=== PATIENT | female | born 1945 | race African-American/Black ===

== ENCOUNTER 2017-10-03 15:08 | Outpatient (CLI) | payer MEDICARE, MEDICAID | END 2017-10-03 15:09 | disposition home or self-care (01) | LOC: BICMAMMO 15:08 | PROVIDERS: ATTEND Family Medicine | DX: Z12.31 Encounter for screening mammogram for malignant neoplasm of breast (principal); R92.1 Mammographic calcification found on diagnostic imaging of breast | CPT/HCPCS: 77063; 77067 ==

== ENCOUNTER 2018-12-27 12:19 | Outpatient (CLI) | payer MEDICARE, MEDICAID ==
--- NOTE | 2018-12-27 13:30 | MMO ---
Bilateral MAMMO Bilat Screen [facility]. CLINICAL HISTORY: Patient is 73 years old and is seen for screening. The patient has no family history of breast cancer. The patient has no personal history of cancer. VIEWS: The views performed were: bilateral craniocaudal with tomosynthesis; bilateral mediolateral oblique with tomosynthesis; right mediolateral oblique; and right exaggerated craniocaudal. FILMS COMPARED: The present examination has been compared to prior imaging studies performed at [facility] on 07/07/2003 and 10/03/2017. MAMMOGRAM FINDINGS: There are scattered fibroglandular densities. There are no suspicious masses, calcifications or areas of architectural distortion. There are benign appearing calcifications in both breasts. There are no suspicious masses, suspicious calcifications, or new areas of architectural distortion. IMPRESSION: THERE IS NO MAMMOGRAPHIC EVIDENCE OF MALIGNANCY. A ROUTINE FOLLOW-UP MAMMOGRAM IN 1 YEAR IS RECOMMENDED. THE RESULTS OF THIS EXAM WERE SENT TO THE PATIENT. ACR BI-RADS Category 2 - Benign finding MAMMOGRAPHY NOTE: 1. A negative mammogram report should not delay a biopsy if a dominant of clinically suspicious mass is present. 2. Approximately 10% to 15% of breast cancers are not detected by mammography. 3. Adenosis and dense breasts may obscure an underlying neoplasm. Reported by: OGLA TRAN MD Electonically Signed: [id number]
== END 2018-12-27 12:20 | disposition home or self-care (01) ==
LOC: BICMAMMO 12:19
PROVIDERS: ATTEND Family Medicine
DX: Z12.31 Encounter for screening mammogram for malignant neoplasm of breast (principal)
CPT/HCPCS: 77063; 77067

== ENCOUNTER 2019-12-01 10:07 | Outpatient (CLI) | payer MEDICARE, OTHER ==
--- NOTE | 2019-12-01 12:20 | MRI ---
MRI RIGHT SHOULDER WITHOUT CONTRAST: HISTORY: Traumatic tear rotator cuff. COMPARISON: None. FINDINGS: Biceps Tendon: Ruptured intraarticular biceps tendon retracted to the mid intra trabecular groove with extensive int erstitial tearing. Labrum: Extensive intrasubstance tearing throughout the superior and anterior superior labrum and anterior-po sterior biceps expansion. Rotator Cuff: Full-thickness tear of the superior subscapularis tendon from the footprint for which it is stripped. There is a full-thickness full-width supraspinatus and infraspinatus tendon tear from the footprint retracted to the glenoid. A few fibers of the rotator cable are seen implanting anteriorly. Muscles: High-grade supraspinatus and infraspinatus muscle atrophy. Bones: Relatively normal appearance to the acromioclavicular joint. Type 3 acromion with narrow subacromial space. Abnormal articulation of the humeral head and the acromion. Normal glenoid version. Cartilage: There are some high-grade chondral fissures of the posterior superior and anterior superior cartilage adjacent to the labrum. Soft Tissues: Large joint effusion. Large subacromial subdeltoid bursa effusion. Moderate synovitis. Axillary pouch is intact. IMPRESSION: 1. Full-thickness, full-width supraspinatus and infraspinatus tendon rupture from the footprint retr acted to the glenoid. Associated high-grade muscle atrophy. 2. Full-thickness delamination of the superior subscapularis tendon from the lesser tuberosity tristin tprint without significant retraction. The inferior fibers are intact. 3. Extensive intrasubstance superior and anterior superior labral tear with adjacent cartilage fissu ring. 4. Type III acromion with large subacromial osteophyte. 5. Mild large joint effusion and moderate synovitis. 6. Ruptured intraarticular tendon retracted to the intertrabecular groove. POS: [facility]
== END 2019-12-01 10:08 | disposition home or self-care (01) ==
LOC: TBSIIMAG 10:07
PROVIDERS: ATTEND Orthopaedic Surgery
DX: S46.011A Strain of muscle(s) and tendon(s) of the rotator cuff of right shoulder, initial encounter (principal); S43.431A Superior glenoid labrum lesion of right shoulder, initial encounter; M25.411 Effusion, right shoulder; M65.811 Other synovitis and tenosynovitis, right shoulder; M25.711 Osteophyte, right shoulder

== ENCOUNTER 2020-05-17 12:32 | Outpatient (CLI) | payer MEDICARE, OTHER ==
--- NOTE | 2020-05-17 13:01 | MMO ---
Bilateral MAMMO Bilat Screen [facility]DI+[facility]. CLINICAL HISTORY: Patient is 75 years old and is seen for screening. The patient has no family history of breast cancer. The patient has no personal history of cancer. VIEWS: The views performed were: bilateral craniocaudal with tomosynthesis and bilateral mediolateral oblique with tomosynthesis. FILMS COMPARED: The present examination has been compared to prior imaging studies performed at [facility] on 07/07/2003, 10/03/2017 and 12/27/2018. This study has been interpreted with the assistance of computer-aided detection. MAMMOGRAM FINDINGS: There are scattered fibroglandular densities. There are new fine pleomorphic calcifications with segmental distribution seen in the upper-outer region of the left breast. In the right breast, there are no suspicious masses, calcifications or areas of architectural distortion. IMPRESSION: NEW CALCIFICATIONS IN THE LEFT BREAST REQUIRE ADDITIONAL EVALUATION. MAGNIFICATION VIEWS ARE RECOMMENDED. THE RESULTS OF THIS EXAM WERE SENT TO THE PATIENT. ACR BI-RADS Category 0 - Incomplete: Need additional imaging evaluation. [facility] will notify the patient of the need for additional imaging services. MAMMOGRAPHY NOTE: 1. A negative mammogram report should not delay a biopsy if a dominant of clinically suspicious mass is present. 2. Approximately 10% to 15% of breast cancers are not detected by mammography. 3. Adenosis and dense breasts may obscure an underlying neoplasm. Reported by: SEDA FAITH MD Electonically Signed: [id number]
== END 2020-05-17 12:33 | disposition home or self-care (01) ==
LOC: BICMAMMO 12:32
PROVIDERS: ATTEND Family Medicine
DX: Z12.31 Encounter for screening mammogram for malignant neoplasm of breast (principal); R92.1 Mammographic calcification found on diagnostic imaging of breast
CPT/HCPCS: 77063; 77067

== ENCOUNTER 2020-05-19 08:57 | Outpatient (CLI) | payer MEDICARE, OTHER ==
--- NOTE | 2020-05-19 09:26 | MMO ---
Left Breast MAMMO Unilat Diag DDI LT+ION. CLINICAL HISTORY: Patient is 75 years old and is seen for diagnostic exam. The patient has no family history of breast cancer. The patient has no personal history of cancer. VIEWS: The views performed were: left craniocaudal with tomosynthesis; left mediolateral oblique with tomosynthesis; and left mediolateral with tomosynthesis. FILMS COMPARED: The present examination has been compared to prior imaging studies performed at [facility] on 07/07/2003, 10/03/2017, 12/27/2018 and 05/17/2020. This study has been interpreted with the assistance of computer-aided detection. MAMMOGRAM FINDINGS: There are scattered fibroglandular densities. Large area of new microcalcifications in upper outer quadrant of left breast. Recommend steriotactic biopsy. IMPRESSION: FINDING IN THE LEFT BREAST IS SUSPICIOUS. BIOPSY IS RECOMMENDED. THE RESULTS OF THIS EXAM WERE SENT TO THE PATIENT. ACR BI-RADS Category 4 - Suspicious abnormality - biopsy should be considered MAMMOGRAPHY NOTE: 1. A negative mammogram report should not delay a biopsy if a dominant of clinically suspicious mass is present. 2. Approximately 10% to 15% of breast cancers are not detected by mammography. 3. Adenosis and dense breasts may obscure an underlying neoplasm. Reported by: RAINA GARDNER MD Electonically Signed: [id number]
== END 2020-05-19 08:58 | disposition home or self-care (01) ==
LOC: BICMAMMO 08:57
PROVIDERS: ATTEND Family Medicine
DX: R92.1 Mammographic calcification found on diagnostic imaging of breast (principal)
CPT/HCPCS: 77065; G0279

== ENCOUNTER → 2020-07-12 | Day surgery (SDC) | payer MEDICARE, OTHER | LOC: MAMMO 07:16 | PROVIDERS: ATTEND Family Medicine | PROC: 0H9U3ZX Drainage of Left Breast, Percutaneous Approach, Diagnostic (ICD-10-PCS; principal; 2020-07-12) | DX: D05.12 Intraductal carcinoma in situ of left breast (principal); R92.0 Mammographic microcalcification found on diagnostic imaging of breast | CPT/HCPCS: 19081; 76098; 88305 ==

== ENCOUNTER 2020-08-09 12:32 | Outpatient (CLI) | payer MEDICARE, OTHER ==
[2020-08-09 15:34] LABS: Anion Gap 16 mmol/L (10-20); BUN (Urea Nitrogen) 11 mg/dL (9.8-20.1); Calc. Creatinine Clearance 0 mL/min (70-130); Calcium 9.3 mg/dL (7.8-10.44); Carbon Dioxide 23 mmol/L (23-31); Chloride 107 mmol/L (98-107); Glucose 133 mg/dL (83-110); Potassium 3.9 mmol/L (3.5-5.1); Sodium 142 mmol/L (136-145)
[2020-08-09 16:13] LABS: #Eosinphils 0.1 10x3/uL (0.0-0.5); #Monocytes 0.7 10x3/uL (0.0-1.1); #Neutrophils 3.6 10x3/uL (1.5-8.4); %Basophils 0.6 % (0.0-2.0); %Eosinophils 1.7 % (0.0-6.0); %Lymphocytes 28.7 % (18.0-47.0); %Monocytes 11.3 % (0.0-10.0); %Neutrophils 57.4 % (40.0-75.0); Hemoglobin 11.4 g/dL (12.0-15.5); Mean Corpuscular HGB CONC 29.7 g/dL (32.0-36.0); Mean Corpuscular Volume 90.8 fl (81.6-98.3); Mean Platelet Volume 10.9 fl (7.4-10.4); Platelet Count 291 10x3/uL (150-450); RBC Distribution Width 15.4 % (11.5-14.5); Red Blood Cell (RBC) Count 4.23 10x6/uL (3.90-5.03); White Blood Cell (WBC) Count 6.3 10x3/uL (3.5-10.5)
[2020-08-09 16:19] LABS: Hypochromia SLIGHT = 6-15 cells (100X) (0-5/hpf); Large Platelets SLIGHT
[2020-08-09 16:20] LABS: Platelet Morphology Comment Appears Adequate
[2020-08-10 02:10] LABS: SARS-CoV-2 PCR by NAA Not Detected (NotDetected)
== END 2020-08-09 12:33 | disposition home or self-care (01) ==
LOC: LABBT 12:32
PROVIDERS: ATTEND Specialist
DX: Z01.818 Encounter for other preprocedural examination (principal); Z20.822 Contact with and (suspected) exposure to COVID-19; D05.12 Intraductal carcinoma in situ of left breast
CPT/HCPCS: 71046; 80048; 85025; 93005; U0003; U0005; 87635; 93010

== ENCOUNTER 2020-08-12 07:26 | Observation (INO) | payer MEDICARE, MEDICAID ==
[2020-08-11 10:22] VITALS: BMI 26.7
[2020-08-12] MEDS ORDERED: Ketorolac Tromethamine 30 MG/ML VIAL ONE (10:11)
[2020-08-12] MEDS ORDERED: Acetaminophen 500 MG TAB ONE (10:11)
[2020-08-12] MEDS ORDERED: Lidocaine 1% w/Epinephrine 1:100K 20 ML VIAL ONE (11:56)
[2020-08-12] MEDS ORDERED: Isosulfan Blue 50 MG/5 ML VIAL ONE (11:56)
[2020-08-12] MEDS ORDERED: Bupivacaine 0.25% HCL 30 ML VIAL ONE (11:56)
[2020-08-12] MEDS ORDERED: Fentanyl 250 MCG/5 ML VIAL ONE (12:02)
[2020-08-12] MEDS ORDERED: Fentanyl 100 MCG/2 ML VIAL ONE ×3 (12:17→16:08)
[2020-08-12] MEDS ORDERED: PROPOFOL 200 MG/20 ML VIAL ONE (12:37)
[2020-08-12] MEDS ORDERED: ePHEDrine Sulfate 50 MG/10 ML VIAL ONE (12:37)
[2020-08-12] MEDS ORDERED: Dexamethasone 20 MG/5 ML VIAL ONE (12:37)
[2020-08-12] MEDS ORDERED: Lidocaine 1% PF 5 ML VIAL ONE (12:37)
[2020-08-12] MEDS ORDERED: Rocuronium Bromide 10 MG/ML (10ML VIAL) ONE (12:37)
[2020-08-12] MEDS ORDERED: Ondansetron PF 4 MG/2 ML Vial ONE (12:37)
[2020-08-12] MEDS ORDERED: Glycopyrrolate 0.2 MG/ML 5 ML SYRINGE ONE (12:37)
[2020-08-12] MEDS ORDERED: Ondansetron HCl/PF 4 MG/2 ML Vial IVP PRN (15:03)
[2020-08-12] MEDS ORDERED: Promethazine HCl 25 MG/ML VIAL SLOW IVP PRN (15:03)
[2020-08-12] MEDS ORDERED: Promethazine HCl 25 MG/ML VIAL IM PRN ×2 (15:03→19:48)
[2020-08-12] MEDS ORDERED: Lactated Ringer's 1,000 ML IV SCH (19:48)
[2020-08-12] MEDS ORDERED: Dextrose 5% in Water 1,000 ML IV PRN (19:48)
[2020-08-12] MEDS ORDERED: Morphine 4 MG/ML VIAL SLOW IVP PRN (19:48)
[2020-08-12] MEDS ORDERED: HYDROcodone/Acetaminophen 7.5/325 mg Tablet PO PRN (19:48)
[2020-08-12] MEDS ORDERED: Morphine 2 MG/ML VIAL SLOW IVP PRN (19:48)
[2020-08-12] MEDS ORDERED: hydrALAZINE 20 MG/ML VIAL SLOW IVP PRN (19:48)
[2020-08-12] MEDS ORDERED: Ondansetron PF 4 MG/2 ML Vial IVP PRN (19:48)
[2020-08-12] MEDS ORDERED: Dextrose 50% Abboject 50 ML SYRINGE SLOW IVP PRN (19:48)
[2020-08-12] MEDS ORDERED: Rosuvastatin 20 MG TAB PO SCH (21:00)
[2020-08-12] MEDS: Famotidine 20 MG TAB PO SCH (21:05)
[2020-08-12] MEDS: Insulin Regular 300 UNITS/3 ML VIAL SC PRN (23:36)
[2020-08-13 05:45] LABS: #Lymphocytes 1.6 thou/uL (1.20-3.40); #Monocytes 1.2 thou/uL (0.11-0.59); #Neutrophils 8.7 thou/uL (1.40-6.50); %Basophils 0.1 % (0.0-1.0); %Eosinophils 0.2 % (0.0-10.0); %Lymphocytes 13.5 % (21.0-51.0); %Monocytes 10.3 % (0.0-10.0); %Neutrophils 75.9 % (42.0-75.0); Hemoglobin 10.2 g/dL (12.0-16.0); Mean Corpuscular HGB CONC 31.9 g/dL (32.0-36.0); Mean Corpuscular Hemoglobin 28.9 pg (27.0-31.0); Mean Corpuscular Volume 90.7 fL (78.0-98.0); Mean Platelet Volume 7.7 fL (7.4-10.4); Platelet Count 233 thou/uL (130-400); RBC Distribution Width 13.8 % (11.5-14.5); Red Blood Cell (RBC) Count 3.53 mill/uL (4.20-5.40); White Blood Cell (WBC) Count 11.5 thou/uL (4.8-10.8)
[2020-08-13] MEDS: Insulin Regular 300 UNITS/3 ML VIAL SC PRN (06:13)
[2020-08-13] MEDS ORDERED: Glimepiride 4 MG TAB PO SCH (08:00)
[2020-08-13] MEDS ORDERED: Alogliptin 25 MG TAB PO SCH (09:00)
[2020-08-13] MEDS ORDERED: Clopidogrel Bisulfate 75 MG TAB PO SCH (09:00)
[2020-08-13] MEDS ORDERED: Losartan 25 MG TAB PO SCH (09:00)
[2020-08-13] MEDS ORDERED: metFORMIN 500 MG TAB PO SCH (09:00)
[2020-08-13] MEDS ORDERED: Furosemide 20 MG TAB PO SCH (09:00)
[2020-08-13] MEDS ORDERED: Amlodipine 10 MG TAB PO SCH (09:00)
[2020-08-13] MEDS: Famotidine 20 MG TAB PO SCH (09:26)
[2020-08-13 11:16] VITALS: BP 139/76; TEMP 98.5
== END 2020-08-13 12:10 | disposition home or self-care (01) ==
LOC: SDC 07:26 → SJJU 15:11
PROVIDERS: ADMIT Specialist; ATTEND Specialist
PROC: 0HBU0ZZ Excision of Left Breast, Open Approach (ICD-10-PCS; principal; 2020-08-12)
PROC: 07B60ZX Excision of Left Axillary Lymphatic, Open Approach, Diagnostic (ICD-10-PCS; 2020-08-12)
DX: D05.12 Intraductal carcinoma in situ of left breast (principal); I10 Essential (primary) hypertension; E11.9 Type 2 diabetes mellitus without complications; I25.10 Atherosclerotic heart disease of native coronary artery without angina pectoris; F17.290 Nicotine dependence, other tobacco product, uncomplicated; Z79.02 Long term (current) use of antithrombotics/antiplatelets; Z79.82 Long term (current) use of aspirin; Z79.899 Other long term (current) drug therapy; Z95.5 Presence of coronary angioplasty implant and graft; Z96.651 Presence of right artificial knee joint
CPT/HCPCS: 19301; 38525; 38900; 78195; 82962 ×2; 85025; 97139; A9541; G0378 ×2; Q9968; 36415; 36416; 88307; 88342; J0690; J1100; J1815; J1885; J2405; J2704; J3010; S0020

== ENCOUNTER 2020-09-01 09:32 | Outpatient (CLI) | payer MEDICARE, OTHER | END 2020-09-01 09:33 | disposition home or self-care (01) | LOC: BICMAMMO 09:32 | PROVIDERS: ATTEND Internal Medicine Hematology & Oncology | DX: Z13.820 Encounter for screening for osteoporosis (principal); Z78.0 Asymptomatic menopausal state | CPT/HCPCS: 77080 ==

== ENCOUNTER 2021-11-01 13:42 | Inpatient (IN) | payer MEDICARE, MEDICAID ==
[2021-11-01 18:19] VITALS: BMI 22.7
[2021-11-01] MEDS ORDERED: Ondansetron PF 4 MG/2 ML Vial IVP PRN (19:54)
[2021-11-01] MEDS ORDERED: HumaLOG 300 UNITS/3 ML VIAL SC PRN ×2 (19:54)
[2021-11-01] MEDS ORDERED: Dextrose 5% in Water 1,000 ML IV PRN (19:54)
[2021-11-01] MEDS ORDERED: Loperamide HCl 2 MG CAP PO PRN (19:54)
[2021-11-01] MEDS ORDERED: HYDROcodone/Acetaminophen 7.5/325 mg Tablet PO PRN (19:54)
[2021-11-01] MEDS ORDERED: Zolpidem Tartrate 5 MG TAB PO PRN (19:54)
[2021-11-01] MEDS: cefTRIAXone\\ROCEPHIN 1 GM in Sodium Chloride 0.9% 100 ML IVPB SCH (21:34)
[2021-11-01] MEDS: Sodium Chloride 0.9% 1,000 ML IV SCH (21:35)
[2021-11-01] MEDS: Mirtazapine 15 MG Soltab PO SCH (21:35)
[2021-11-01] MEDS: Rosuvastatin 20 MG TAB PO SCH (21:35)
[2021-11-01] MEDS: Famotidine 20 MG TAB PO SCH (21:35)
[2021-11-02] MEDS: metroNIDAZOLE 500 MG in Premix Bag 1 BAG IVPB SCH ×3 (01:56→17:05)
[2021-11-02 05:00] LABS: #Eosinphils 0.1 thou/uL (0.0-0.7); #Lymphocytes 2.2 thou/uL (1.20-3.40); #Monocytes 1.2 thou/uL (0.11-0.59); #Neutrophils 6.5 thou/uL (1.40-6.50); %Basophils 0.4 % (0.0-1.0); %Eosinophils 0.7 % (0.0-10.0); %Lymphocytes 21.7 % (21.0-51.0); %Monocytes 11.9 % (0.0-10.0); %Neutrophils 65.3 % (42.0-75.0); Mean Corpuscular HGB CONC 30.8 g/dL (32.0-36.0); Mean Corpuscular Hemoglobin 27.7 pg (27.0-31.0); Mean Corpuscular Volume 89.8 fL (78.0-98.0); Mean Platelet Volume 8.5 fL (7.4-10.4); Platelet Count 316 thou/uL (130-400); RBC Distribution Width 15.6 % (11.5-14.5); Red Blood Cell (RBC) Count 4.34 mill/uL (4.20-5.40)
[2021-11-02 05:18] LABS: ALT (SGPT) 74 U/L (8-55); AST (SGOT) 575 U/L (5-34); Albumin 2.5 g/dL (3.4-4.8); Alkaline Phosphatase 530 U/L (40-110); Anion Gap 13 mmol/L (10-20); BUN (Urea Nitrogen) 45 mg/dL (9.8-20.1); Bilirubin, Total 2.9 mg/dL (0.2-1.2); Calc. Creatinine Clearance 26 mL/min (70-130); Calcium 8.8 mg/dL (7.8-10.44); Carbon Dioxide 24 mmol/L (23-31); Chloride 107 mmol/L (98-107); Estimated GFR 24; Globulin 3.6 g/dL (2.4-3.5); Potassium 4.3 mmol/L (3.5-5.1); Protein, Total 6.1 g/dL (5.8-8.1); Sodium 140 mmol/L (136-145)
[2021-11-02 05:22] LABS: Troponin I 0.131 ng/mL (< 0.028)
[2021-11-02 05:25] LABS: Glucose 56 mg/dL (83-110)
[2021-11-02 07:08] LABS: Bilirubin Negative (Negative); Blood, Urine Negative (Negative); Clarity Turbid (Clear); Glucose, Urine (Dipstick) Normal (Negative); Ketone, Urine Negative (Negative); Leukocyte Negative Leu/uL (Negative); Nitrite Negative (Negative); Protein, Urine (Dipstick) 30 mg/dL (Neg-Trace); RBC/HPF 0-3 HPF (0-3); Specific Gravity, Urine 1.018 (1.002-1.036); Squamous Epithelial None Seen HPF (0-3)
[2021-11-02 07:21] LABS: Creatinine, Urine 91.98 mg/dL (47-110)
[2021-11-02 07:23] LABS: Bacteria/HPF 1+ HPF (None Seen)
[2021-11-02 07:24] LABS: Transitional Epithelial 0-3 HPF (None Seen)
[2021-11-02 07:25] LABS: Urine Culture Reflex Yes Yes
[2021-11-02 08:13] LABS: Protein, Urine Random Quant 45 mg/dL (1-14); Urea Nitrogen, Random Urine 831 mg/dl
[2021-11-02] MEDS ORDERED: Losartan 25 MG TAB PO SCH (09:00)
[2021-11-02] MEDS ORDERED: Non-Formulary Item 1 EACH (Olmesartan Medoxomil [Olmesartan Medoxomil] 40 MG Tablet) PO SCH (09:00)
[2021-11-02] MEDS: Multivitamin W/ Minerals 1 TAB PO SCH (09:02)
[2021-11-02] MEDS: Famotidine 20 MG TAB PO SCH (09:02)
[2021-11-02] MEDS: Glimepiride 4 MG TAB PO SCH ×3 (09:02→17:05)
[2021-11-02] MEDS: Sodium Chloride 0.9% 1,000 ML IV SCH ×3 (10:12→15:18)
[2021-11-02 10:29] LABS: CK (CPK) 228 U/L (29-168)
[2021-11-02] MEDS: Albumin 25% 25 GM/100 ML BOT IVPB SCH (10:59)
[2021-11-02 15:59] LABS: Albumin 3.2 g/dL (3.4-4.8); Anion Gap 14 mmol/L (10-20); BUN (Urea Nitrogen) 42 mg/dL (9.8-20.1); Calc. Creatinine Clearance 26 mL/min (70-130); Calcium 9.2 mg/dL (7.8-10.44); Carbon Dioxide 26 mmol/L (23-31); Chloride 106 mmol/L (98-107); Estimated GFR 24; Glucose 105 mg/dL (83-110); Phosphorus 2.3 mg/dL (2.3-4.7); Potassium 3.6 mmol/L (3.5-5.1); Sodium 142 mmol/L (136-145)
[2021-11-02] MEDS: Rosuvastatin 20 MG TAB PO SCH (21:14)
[2021-11-02] MEDS: cefTRIAXone\\ROCEPHIN 1 GM in Sodium Chloride 0.9% 100 ML IVPB SCH (21:14)
[2021-11-02] MEDS: Mirtazapine 15 MG Soltab PO SCH (21:14)
[2021-11-03] MEDS: Albumin 25% 25 GM/100 ML BOT IVPB SCH ×3 (01:40→02:04)
[2021-11-03] MEDS: metroNIDAZOLE 500 MG in Premix Bag 1 BAG IVPB SCH ×3 (01:40→19:55)
[2021-11-03] MEDS: Sodium Chloride 0.9% 1,000 ML IV SCH (01:41)
[2021-11-03] MEDS: Dextrose 50% Abboject 50 ML SYRINGE SLOW IVP PRN ×2 (05:11→21:07)
[2021-11-03 07:34] LABS: INR-International Normal Ratio 1.1; Prothrombin Time 14.7 sec (12.0-14.7)
[2021-11-03 07:35] LABS: PTT 40.4 sec (22.9-36.1)
[2021-11-03 08:38] LABS: ALT (SGPT) 61 U/L (8-55); AST (SGOT) 436 U/L (5-34); Alkaline Phosphatase 454 U/L (40-110); Anion Gap 15 mmol/L (10-20); BUN (Urea Nitrogen) 32 mg/dL (9.8-20.1); Calc. Creatinine Clearance 34 mL/min (70-130); Calcium 8.8 mg/dL (7.8-10.44); Carbon Dioxide 21 mmol/L (23-31); Chloride 112 mmol/L (98-107); Estimated GFR 34; Globulin 2.9 g/dL (2.4-3.5); Glucose 72 mg/dL (83-110); Potassium 3.5 mmol/L (3.5-5.1); Protein, Total 5.9 g/dL (5.8-8.1); Sodium 144 mmol/L (136-145)
[2021-11-03] MEDS ORDERED: Sodium Chloride 0.9% 1,000 ML IV SCH (08:57)
[2021-11-03] MEDS: Multivitamin W/ Minerals 1 TAB PO SCH (10:28)
[2021-11-03] MEDS: Sodium Bicarbonate Tab 325 MG TAB PO SCH ×3 (10:28→21:07)
[2021-11-03] MEDS: Enoxaparin Sodium 30 MG/0.3 ML SYRINGE SC SCH (10:29)
[2021-11-03] MEDS: Famotidine 20 MG TAB PO SCH (10:29)
[2021-11-03] MEDS: Glimepiride 4 MG TAB PO SCH (10:48)
[2021-11-03] MEDS ORDERED: Sodium Bicarbonate 2.5 MEQ/5 ML VIAL ONE (11:57)
[2021-11-03] MEDS ORDERED: Dextrose 5%-Lactated Ringers 1,000 ML IV SCH (16:00)
[2021-11-03] MEDS: cefTRIAXone\\ROCEPHIN 1 GM in Sodium Chloride 0.9% 100 ML IVPB SCH (21:06)
[2021-11-03] MEDS: Mirtazapine 15 MG Soltab PO SCH (21:07)
[2021-11-03] MEDS: Rosuvastatin 20 MG TAB PO SCH (21:43)
[2021-11-03] MEDS: hydrALAZINE 20 MG/ML VIAL SLOW IVP PRN (23:30)
[2021-11-04] MEDS: Albumin 25% 25 GM/100 ML BOT IVPB SCH (01:55)
[2021-11-04] MEDS: metroNIDAZOLE 500 MG in Premix Bag 1 BAG IVPB SCH ×3 (01:59→18:03)
[2021-11-04 04:51] LABS: ALT (SGPT) 66 U/L (8-55); AST (SGOT) 511 U/L (5-34); Alkaline Phosphatase 524 U/L (40-110); Anion Gap 12 mmol/L (10-20); BUN (Urea Nitrogen) 20 mg/dL (9.8-20.1); Bilirubin, Total 3.3 mg/dL (0.2-1.2); Calc. Creatinine Clearance 43 mL/min (70-130); Calcium 9.3 mg/dL (7.8-10.44); Carbon Dioxide 23 mmol/L (23-31); Chloride 111 mmol/L (98-107); Estimated GFR 45; Sodium 143 mmol/L (136-145)
[2021-11-04 05:08] LABS: Glucose 39 mg/dL (83-110)
[2021-11-04] MEDS: Dextrose 50% Abboject 50 ML SYRINGE SLOW IVP PRN ×2 (05:57→12:08)
[2021-11-04] MEDS ORDERED: Dextrose 10% in Water 1,000 ML IV SCH (06:00)
[2021-11-04] MEDS: Enoxaparin Sodium 30 MG/0.3 ML SYRINGE SC SCH (07:27)
[2021-11-04] MEDS ORDERED: Glimepiride 2 MG TAB PO SCH (07:30)
[2021-11-04 08:05] LABS: Magnesium 2.2 mg/dL (1.6-2.6)
[2021-11-04] MEDS ORDERED: Sodium Bicarbonate 2.5 MEQ/5 ML VIAL ONE (08:51)
[2021-11-04] MEDS ORDERED: Glimepiride 4 MG TAB PO SCH (09:00)
[2021-11-04] MEDS: Potassium Chloride 20 MEQ TAB PO SCH ×2 (09:04→13:19)
[2021-11-04] MEDS: Famotidine 20 MG TAB PO SCH (09:05)
[2021-11-04] MEDS: Sodium Bicarbonate Tab 325 MG TAB PO SCH ×3 (09:05→21:26)
[2021-11-04] MEDS ORDERED: Potassium Chloride 20 MEQ TAB PO SCH (09:30)
[2021-11-04] MEDS ORDERED: Amlodipine 5 MG TAB PO SCH ×2 (10:00→11:30)
[2021-11-04] MEDS: Multivitamin W/ Minerals 1 TAB PO SCH (11:23)
[2021-11-04 12:48] LABS: Glucose 32 mg/dL (83-110)
[2021-11-04] MEDS: Dextrose 10% in Water 1,000 ML IV SCH (13:15)
[2021-11-04] MEDS: cefTRIAXone\\ROCEPHIN 1 GM in Sodium Chloride 0.9% 100 ML IVPB SCH (21:26)
[2021-11-04] MEDS: Mirtazapine 15 MG Soltab PO SCH (21:26)
[2021-11-04] MEDS: Rosuvastatin 20 MG TAB PO SCH (21:26)
[2021-11-05] MEDS: metroNIDAZOLE 500 MG in Premix Bag 1 BAG IVPB SCH ×3 (02:34→17:39)
[2021-11-05] MEDS: Dextrose 10% in Water 1,000 ML IV SCH (04:25)
[2021-11-05 08:07] LABS: Anion Gap 13 mmol/L (10-20); BUN (Urea Nitrogen) 14 mg/dL (9.8-20.1); Calc. Creatinine Clearance 30 mL/min (70-130); Calcium 8.1 mg/dL (7.8-10.44); Carbon Dioxide 21 mmol/L (23-31); Chloride 99 mmol/L (98-107); Estimated GFR 29; Potassium 3.7 mmol/L (3.5-5.1); Sodium 129 mmol/L (136-145)
[2021-11-05 08:14] LABS: #Basophils 0.1 thou/uL (0.0-0.2); #Eosinphils 0.1 thou/uL (0.0-0.7); #Lymphocytes 1.6 thou/uL (1.20-3.40); #Monocytes 1.2 thou/uL (0.11-0.59); %Basophils 0.6 % (0.0-1.0); %Eosinophils 0.9 % (0.0-10.0); %Lymphocytes 16.3 % (21.0-51.0); %Monocytes 12.2 % (0.0-10.0); Hemoglobin 11.3 g/dL (12.0-16.0); Mean Corpuscular HGB CONC 29.7 g/dL (32.0-36.0); Mean Corpuscular Volume 94.2 fL (78.0-98.0); Mean Platelet Volume 8.8 fL (7.4-10.4); Platelet Count 274 thou/uL (130-400); RBC Distribution Width 16.7 % (11.5-14.5); Red Blood Cell (RBC) Count 4.03 mill/uL (4.20-5.40); White Blood Cell (WBC) Count 9.9 thou/uL (4.8-10.8)
[2021-11-05 08:15] LABS: Hypochromia SLIGHT = 6-15 cells (100X) (0-5/hpf); MDiff Complete? YES; Platelet Morphology Comment Appears Adequate; Polychromasia SLIGHT = 2-3 cells (100X) (0-2/hpf); Schistocytes SLIGHT = 2-5 cells (100X) (0-1/hpf); Target Cells SLIGHT = 2-5 cells (100X) (0-1/hpf)
[2021-11-05 08:23] LABS: Glucose Greater than 800 mg/dL (83-110)
[2021-11-05] MEDS: Sodium Bicarbonate Tab 325 MG TAB PO SCH ×3 (09:15→20:49)
[2021-11-05] MEDS: Amlodipine 5 MG TAB PO SCH (09:15)
[2021-11-05] MEDS: Famotidine 20 MG TAB PO SCH (09:16)
[2021-11-05] MEDS: Multivitamin W/ Minerals 1 TAB PO SCH (09:16)
[2021-11-05] MEDS: Enoxaparin Sodium 30 MG/0.3 ML SYRINGE SC SCH (09:18)
[2021-11-05] MEDS ORDERED: Sodium Chloride 0.9% 1,000 ML IV SCH ×2 (09:30→10:07)
[2021-11-05 13:59] LABS: Anion Gap 13 mmol/L (10-20); BUN (Urea Nitrogen) 16 mg/dL (9.8-20.1); Calc. Creatinine Clearance 43 mL/min (70-130); Calcium 9.4 mg/dL (7.8-10.44); Carbon Dioxide 25 mmol/L (23-31); Chloride 108 mmol/L (98-107); Estimated GFR 45; Glucose 33 mg/dL (83-110); Potassium 4.1 mmol/L (3.5-5.1); Sodium 142 mmol/L (136-145)
[2021-11-05] MEDS: Sodium Chloride 0.9% 1,000 ML IV SCH (16:07)
[2021-11-05] MEDS: cefTRIAXone\\ROCEPHIN 1 GM in Sodium Chloride 0.9% 100 ML IVPB SCH (20:49)
[2021-11-05] MEDS: Mirtazapine 15 MG Soltab PO SCH (20:49)
[2021-11-05] MEDS: Rosuvastatin 20 MG TAB PO SCH (20:49)
[2021-11-06] MEDS: Sodium Chloride 0.9% 1,000 ML IV SCH (02:10)
[2021-11-06] MEDS: metroNIDAZOLE 500 MG in Premix Bag 1 BAG IVPB SCH ×2 (02:11→16:48)
[2021-11-06] MEDS: Dextrose 50% Abboject 50 ML SYRINGE SLOW IVP PRN (03:08)
[2021-11-06 07:32] LABS: Anion Gap 13 mmol/L (10-20); BUN (Urea Nitrogen) 13 mg/dL (9.8-20.1); Calc. Creatinine Clearance 44 mL/min (70-130); Calcium 9.3 mg/dL (7.8-10.44); Carbon Dioxide 21 mmol/L (23-31); Chloride 109 mmol/L (98-107); Estimated GFR 47; Potassium 4.3 mmol/L (3.5-5.1); Sodium 139 mmol/L (136-145)
[2021-11-06 07:35] LABS: Glucose 29 mg/dL (83-110)
[2021-11-06] MEDS: Dextrose 10% in Water 1,000 ML IV SCH ×2 (09:43→20:55)
[2021-11-06] MEDS: Amlodipine 5 MG TAB PO SCH (09:45)
[2021-11-06] MEDS: Sodium Bicarbonate Tab 325 MG TAB PO SCH ×3 (09:45→20:56)
[2021-11-06] MEDS: Famotidine 20 MG TAB PO SCH (09:45)
[2021-11-06] MEDS: Multivitamin W/ Minerals 1 TAB PO SCH (09:46)
[2021-11-06] MEDS: Enoxaparin Sodium 30 MG/0.3 ML SYRINGE SC SCH (09:46)
[2021-11-06] MEDS: Mirtazapine 15 MG Soltab PO SCH (20:56)
[2021-11-06] MEDS: cefTRIAXone\\ROCEPHIN 1 GM in Sodium Chloride 0.9% 100 ML IVPB SCH (20:56)
[2021-11-06] MEDS: Rosuvastatin 20 MG TAB PO SCH (20:57)
[2021-11-06] MEDS ORDERED: metroNIDAZOLE 500 MG TAB PO SCH (21:00)
[2021-11-06] MEDS: hydrALAZINE 20 MG/ML VIAL SLOW IVP PRN (21:12)
[2021-11-07 07:46] LABS: ALT (SGPT) 55 U/L (8-55); AST (SGOT) 544 U/L (5-34); Albumin 2.5 g/dL (3.4-4.8); Alkaline Phosphatase 500 U/L (40-110); Anion Gap 16 mmol/L (10-20); BUN (Urea Nitrogen) 14 mg/dL (9.8-20.1); Bilirubin, Total 2.6 mg/dL (0.2-1.2); Calc. Creatinine Clearance 40 mL/min (70-130); Calcium 8.9 mg/dL (7.8-10.44); Carbon Dioxide 18 mmol/L (23-31); Chloride 108 mmol/L (98-107); Estimated GFR 41; Globulin 3.2 g/dL (2.4-3.5); Glucose 91 mg/dL (83-110); Potassium 4.5 mmol/L (3.5-5.1); Protein, Total 5.7 g/dL (5.8-8.1); Sodium 137 mmol/L (136-145)
[2021-11-07] MEDS ORDERED: Metoprolol Tartrate 25 MG TAB PO SCH (09:00)
[2021-11-07] MEDS: Enoxaparin Sodium 30 MG/0.3 ML SYRINGE SC SCH (10:02)
[2021-11-07] MEDS: Multivitamin W/ Minerals 1 TAB PO SCH (10:03)
[2021-11-07] MEDS: NIFEdipine XL 30 MG TAB PO SCH (10:03)
[2021-11-07] MEDS: Famotidine 20 MG TAB PO SCH (10:04)
[2021-11-07] MEDS: Albumin 25% 25 GM/100 ML BOT IVPB SCH ×3 (10:04→21:41)
[2021-11-07] MEDS: Sodium Bicarbonate Tab 325 MG TAB PO SCH ×3 (10:04→21:41)
[2021-11-07] MEDS: Dextrose 10% in Water 1,000 ML IV SCH (13:12)
[2021-11-07] MEDS: Rosuvastatin 20 MG TAB PO SCH (21:41)
[2021-11-07] MEDS: Mirtazapine 15 MG Soltab PO SCH (21:41)
[2021-11-08] MEDS: Dextrose 10% in Water 1,000 ML IV SCH (04:31)
[2021-11-08 08:38] LABS: Hemoglobin A1c 6.7 % (4.0-6.0)
[2021-11-08 08:45] LABS: Anion Gap 14 mmol/L (10-20); BUN (Urea Nitrogen) 12 mg/dL (9.8-20.1); BUN/Creatinine Ratio 8.28; Calc. Creatinine Clearance 37 mL/min (70-130); Calcium 9.2 mg/dL (7.8-10.44); Carbon Dioxide 23 mmol/L (23-31); Chloride 105 mmol/L (98-107); Estimated GFR 38; Glucose 246 mg/dL (83-110); Phosphorus 2.7 mg/dL (2.3-4.7); Potassium 3.8 mmol/L (3.5-5.1); Sodium 138 mmol/L (136-145)
[2021-11-08] MEDS: Sodium Bicarbonate Tab 325 MG TAB PO SCH ×3 (09:56→20:13)
[2021-11-08] MEDS: NIFEdipine XL 30 MG TAB PO SCH (09:57)
[2021-11-08] MEDS: Famotidine 20 MG TAB PO SCH (09:57)
[2021-11-08] MEDS: Enoxaparin Sodium 30 MG/0.3 ML SYRINGE SC SCH (09:57)
[2021-11-08] MEDS: Multivitamin W/ Minerals 1 TAB PO SCH (09:57)
[2021-11-08] MEDS: Lactated Ringer's 1,000 ML IV SCH (09:57)
[2021-11-08] MEDS: Albumin 25% 25 GM/100 ML BOT IVPB SCH ×3 (09:57→20:14)
[2021-11-08] MEDS ORDERED: Cepastat Lozenges 1 LOZ PO PRN (10:37)
[2021-11-08] MEDS: Rosuvastatin 20 MG TAB PO SCH (20:13)
[2021-11-08] MEDS: Mirtazapine 15 MG Soltab PO SCH (20:13)
[2021-11-09] MEDS: Albumin 25% 25 GM/100 ML BOT IVPB SCH ×3 (02:35→18:34)
[2021-11-09] MEDS: Lactated Ringer's 1,000 ML IV SCH ×2 (05:14→08:37)
[2021-11-09 06:27] LABS: ALT (SGPT) 41 U/L (8-55); AST (SGOT) 403 U/L (5-34); Albumin 3.7 g/dL (3.4-4.8); Alkaline Phosphatase 460 U/L (40-110); Anion Gap 12 mmol/L (10-20); BUN (Urea Nitrogen) 11 mg/dL (9.8-20.1); Bilirubin, Total 3.5 mg/dL (0.2-1.2); Calc. Creatinine Clearance 32 mL/min (70-130); Calcium 9.7 mg/dL (7.8-10.44); Carbon Dioxide 26 mmol/L (23-31); Cardiac Risk 4.8 (Less than 4.5); Chloride 106 mmol/L (98-107); Cholesterol 63 mg/dl (< 200 Desired); Estimated GFR 32; Globulin 2.5 g/dL (2.4-3.5); Glucose 143 mg/dL (83-110); HDL Cholesterol 13 mg/dL (>60 Neg Risk); LDL Cholesterol, Calculated 40 mg/dL; Magnesium 2.3 mg/dL (1.6-2.6); Potassium 3.4 mmol/L (3.5-5.1); Protein, Total 6.2 g/dL (5.8-8.1); Sodium 141 mmol/L (136-145); Triglycerides 49 mg/dL (Less than 150)
[2021-11-09 06:48] LABS: #Basophils 0.1 thou/uL (0.0-0.2); #Eosinphils 0.1 thou/uL (0.0-0.7); #Monocytes 1.5 thou/uL (0.11-0.59); #Neutrophils 6.7 thou/uL (1.40-6.50); %Basophils 0.8 % (0.0-1.0); %Eosinophils 0.5 % (0.0-10.0); %Lymphocytes 19.2 % (21.0-51.0); %Monocytes 14.2 % (0.0-10.0); %Neutrophils 65.2 % (42.0-75.0); Hemoglobin 10.4 g/dL (12.0-16.0); Mean Platelet Volume 8.4 fL (7.4-10.4); Platelet Count 311 thou/uL (130-400); RBC Distribution Width 16.7 % (11.5-14.5); Red Blood Cell (RBC) Count 3.86 mill/uL (4.20-5.40); White Blood Cell (WBC) Count 10.3 thou/uL (4.8-10.8)
[2021-11-09] MEDS ORDERED: Potassium Chloride 20 MEQ TAB PO SCH (07:30)
[2021-11-09] MEDS ORDERED: NIFEdipine XL 30 MG TAB PO SCH (07:58)
[2021-11-09 08:10] LABS: CK (CPK) 332 U/L (29-168)
[2021-11-09] MEDS: NIFEdipine XL 60 MG TAB PO SCH (08:38)
[2021-11-09] MEDS: Sodium Bicarbonate Tab 325 MG TAB PO SCH (08:38)
[2021-11-09] MEDS: Multivitamin W/ Minerals 1 TAB PO SCH (08:38)
[2021-11-09] MEDS: Famotidine 20 MG TAB PO SCH (08:39)
[2021-11-09] MEDS: Enoxaparin Sodium 30 MG/0.3 ML SYRINGE SC SCH (08:39)
[2021-11-09 17:31] LABS: Protein, Urine Random Quant 151 mg/dL (1-14); Sodium, Urine 73 mmol/L (Not Available)
[2021-11-09] MEDS: Mirtazapine 15 MG Soltab PO SCH (19:47)
[2021-11-09] MEDS: Rosuvastatin 20 MG TAB PO SCH (19:47)
[2021-11-10] MEDS: Lactated Ringer's 1,000 ML IV SCH (00:22)
[2021-11-10] MEDS: Acetaminophen 325 MG TAB PO PRN (06:49)
[2021-11-10 07:15] LABS: ALT (SGPT) 45 U/L (8-55); AST (SGOT) 466 U/L (5-34); Albumin 4.1 g/dL (3.4-4.8); Alkaline Phosphatase 488 U/L (40-110); Anion Gap 19 mmol/L (10-20); BUN (Urea Nitrogen) 14 mg/dL (9.8-20.1); Bilirubin, Total 4.6 mg/dL (0.2-1.2); CK (CPK) 348 U/L (29-168); Calc. Creatinine Clearance 29 mL/min (70-130); Calcium 10.5 mg/dL (7.8-10.44); Carbon Dioxide 21 mmol/L (23-31); Chloride 108 mmol/L (98-107); Estimated GFR 28; Globulin 2.5 g/dL (2.4-3.5); Glucose 86 mg/dL (83-110); Magnesium 2.3 mg/dL (1.6-2.6); Potassium 3.6 mmol/L (3.5-5.1); Protein, Total 6.6 g/dL (5.8-8.1); Sodium 144 mmol/L (136-145)
[2021-11-10 07:32] LABS: HBCM Index 0.09 S/CO (0-0.79); HBSAg Index 0.28 S/CO (0-0.99); Hep A IgM AB Non-Reactive (NonReactive); Hep A IgM S/CO 0.08 S/CO (0-0.79); Hep B Surf Ag Non-Reactive S/CO (NonReactive); Hep C IgG Ab Non-Reactive (NonReactive); Hep C Index 0.08 S/CO (0-0.79); Hepatitis B Core IgM Abs Non-Reactive (NonReactive)
[2021-11-10 07:50] LABS: #Eosinphils 0.1 thou/uL (0.0-0.7); #Lymphocytes 2.9 thou/uL (1.20-3.40); #Monocytes 1.6 thou/uL (0.11-0.59); #Neutrophils 7.2 thou/uL (1.40-6.50); %Basophils 0.2 % (0.0-1.0); %Eosinophils 0.5 % (0.0-10.0); %Lymphocytes 24.7 % (21.0-51.0); %Monocytes 13.9 % (0.0-10.0); %Neutrophils 60.8 % (42.0-75.0); Hemoglobin 11.3 g/dL (12.0-16.0); MDiff Complete? YES; Mean Corpuscular HGB CONC 29.9 g/dL (32.0-36.0); Mean Corpuscular Hemoglobin 26.7 pg (27.0-31.0); Mean Corpuscular Volume 89.3 fL (78.0-98.0); Platelet Count 330 thou/uL (130-400); Platelet Morphology Comment Appears Adequate; Polychromasia SLIGHT = 2-3 cells (100X) (0-2/hpf); RBC Distribution Width 16.9 % (11.5-14.5); Red Blood Cell (RBC) Count 4.22 mill/uL (4.20-5.40); Schistocytes SLIGHT = 2-5 cells (100X) (0-1/hpf); White Blood Cell (WBC) Count 11.8 thou/uL (4.8-10.8)
[2021-11-10] MEDS: Famotidine 20 MG TAB PO SCH (09:23)
[2021-11-10] MEDS: Enoxaparin Sodium 30 MG/0.3 ML SYRINGE SC SCH (09:23)
[2021-11-10] MEDS: NIFEdipine XL 60 MG TAB PO SCH (09:23)
[2021-11-10] MEDS: Multivitamin W/ Minerals 1 TAB PO SCH (09:23)
[2021-11-10] MEDS: Rosuvastatin 20 MG TAB PO SCH (20:08)
[2021-11-10] MEDS: Mirtazapine 15 MG Soltab PO SCH (20:08)
[2021-11-11 05:57] LABS: #Basophils 0.1 thou/uL (0.0-0.2); #Lymphocytes 2.9 thou/uL (1.20-3.40); #Monocytes 1.6 thou/uL (0.11-0.59); #Neutrophils 7.5 thou/uL (1.40-6.50); %Basophils 0.6 % (0.0-1.0); %Eosinophils 0.3 % (0.0-10.0); %Lymphocytes 23.6 % (21.0-51.0); %Monocytes 13.4 % (0.0-10.0); %Neutrophils 62.1 % (42.0-75.0); Hemoglobin 11.7 g/dL (12.0-16.0); Mean Corpuscular HGB CONC 29.4 g/dL (32.0-36.0); Mean Corpuscular Hemoglobin 26.5 pg (27.0-31.0); Mean Corpuscular Volume 90.2 fL (78.0-98.0); Mean Platelet Volume 8.6 fL (7.4-10.4); Platelet Count 366 thou/uL (130-400); RBC Distribution Width 17.1 % (11.5-14.5); Red Blood Cell (RBC) Count 4.43 mill/uL (4.20-5.40); White Blood Cell (WBC) Count 12.1 thou/uL (4.8-10.8)
[2021-11-11 06:05] LABS: ALT (SGPT) 46 U/L (8-55); AST (SGOT) 524 U/L (5-34); Albumin 3.6 g/dL (3.4-4.8); Alkaline Phosphatase 530 U/L (40-110); Anion Gap 17 mmol/L (10-20); BUN (Urea Nitrogen) 19 mg/dL (9.8-20.1); Bilirubin, Total 4.5 mg/dL (0.2-1.2); Calc. Creatinine Clearance 22 mL/min (70-130); Carbon Dioxide 21 mmol/L (23-31); Chloride 108 mmol/L (98-107); Estimated GFR 20; Globulin 2.8 g/dL (2.4-3.5); Glucose 110 mg/dL (83-110); Magnesium 2.3 mg/dL (1.6-2.6); Potassium 3.6 mmol/L (3.5-5.1); Protein, Total 6.4 g/dL (5.8-8.1); Sodium 142 mmol/L (136-145)
[2021-11-11] MEDS: NIFEdipine XL 60 MG TAB PO SCH (08:20)
[2021-11-11] MEDS: Multivitamin W/ Minerals 1 TAB PO SCH (08:20)
[2021-11-11] MEDS: Enoxaparin Sodium 30 MG/0.3 ML SYRINGE SC SCH (08:21)
[2021-11-11] MEDS: Famotidine 20 MG TAB PO SCH (08:21)
[2021-11-11] MEDS: Sodium Bicarbonate Tab 325 MG TAB PO SCH ×2 (14:27→21:37)
[2021-11-11] MEDS: Midodrine HCl 5 MG TAB PO SCH ×2 (14:28→21:38)
[2021-11-11] MEDS: Albumin 25% 25 GM/100 ML BOT IVPB SCH ×2 (14:30→21:39)
[2021-11-11] MEDS: Octreotide Acetate 100 MCG/ML VIAL SC SCH ×2 (14:36→21:39)
[2021-11-11] MEDS: Rosuvastatin 20 MG TAB PO SCH (21:38)
[2021-11-11] MEDS: Mirtazapine 15 MG Soltab PO SCH (21:38)
[2021-11-12] MEDS: Albumin 25% 25 GM/100 ML BOT IVPB SCH ×3 (05:05→23:24)
[2021-11-12] MEDS: Octreotide Acetate 100 MCG/ML VIAL SC SCH (05:05)
[2021-11-12 06:41] LABS: #Basophils 0.1 thou/uL (0.0-0.2); #Eosinphils 0.1 thou/uL (0.0-0.7); #Lymphocytes 2.4 thou/uL (1.20-3.40); #Monocytes 1.5 thou/uL (0.11-0.59); #Neutrophils 7.5 thou/uL (1.40-6.50); %Basophils 0.6 % (0.0-1.0); %Eosinophils 0.8 % (0.0-10.0); %Lymphocytes 20.5 % (21.0-51.0); %Monocytes 13.1 % (0.0-10.0); Hemoglobin 10.8 g/dL (12.0-16.0); Mean Corpuscular HGB CONC 30.4 g/dL (32.0-36.0); Mean Corpuscular Hemoglobin 27.5 pg (27.0-31.0); Mean Corpuscular Volume 90.5 fL (78.0-98.0); Mean Platelet Volume 8.9 fL (7.4-10.4); Platelet Count 327 thou/uL (130-400); RBC Distribution Width 17.4 % (11.5-14.5); Red Blood Cell (RBC) Count 3.94 mill/uL (4.20-5.40); White Blood Cell (WBC) Count 11.5 thou/uL (4.8-10.8)
[2021-11-12 06:59] LABS: ALT (SGPT) 41 U/L (8-55); AST (SGOT) 522 U/L (5-34); Albumin 4.1 g/dL (3.4-4.8); Alkaline Phosphatase 484 U/L (40-110); Anion Gap 21 mmol/L (10-20); BUN (Urea Nitrogen) 28 mg/dL (9.8-20.1); Bilirubin, Total 4.1 mg/dL (0.2-1.2); Calc. Creatinine Clearance 15 mL/min (70-130); Calcium 10.2 mg/dL (7.8-10.44); Carbon Dioxide 17 mmol/L (23-31); Chloride 107 mmol/L (98-107); Estimated GFR 13; Globulin 2.5 g/dL (2.4-3.5); Glucose 90 mg/dL (83-110); Magnesium 2.5 mg/dL (1.6-2.6); Potassium 3.9 mmol/L (3.5-5.1); Protein, Total 6.6 g/dL (5.8-8.1); Sodium 141 mmol/L (136-145)
[2021-11-12] MEDS: Sodium Bicarbonate Tab 325 MG TAB PO SCH ×3 (09:20→20:42)
[2021-11-12] MEDS: Midodrine HCl 5 MG TAB PO SCH ×3 (09:20→20:43)
[2021-11-12] MEDS: NIFEdipine XL 60 MG TAB PO SCH (09:20)
[2021-11-12] MEDS: Multivitamin W/ Minerals 1 TAB PO SCH (09:20)
[2021-11-12] MEDS: Enoxaparin Sodium 30 MG/0.3 ML SYRINGE SC SCH (09:20)
[2021-11-12] MEDS ORDERED: Octreotide Acetate 500 MCG/ML VIAL SC SCH (14:00)
[2021-11-12] MEDS: OCTREOTIDE ACETATE SC SCH ×2 (14:55→23:22)
[2021-11-12] MEDS: PRE FILLED SC SCH ×2 (14:55→23:22)
[2021-11-12] MEDS: Acetaminophen 325 MG TAB PO PRN (20:42)
[2021-11-12] MEDS: Rosuvastatin 20 MG TAB PO SCH (20:43)
[2021-11-12] MEDS: Mirtazapine 15 MG Soltab PO SCH (20:43)
[2021-11-13] MEDS: Albumin 25% 25 GM/100 ML BOT IVPB SCH ×2 (05:50→14:28)
[2021-11-13] MEDS: OCTREOTIDE ACETATE SC SCH ×2 (05:50→14:22)
[2021-11-13] MEDS: PRE FILLED SC SCH ×2 (05:50→14:22)
[2021-11-13 07:00] LABS: #Eosinphils 0.1 thou/uL (0.0-0.7); #Lymphocytes 2.2 thou/uL (1.20-3.40); #Monocytes 1.2 thou/uL (0.11-0.59); #Neutrophils 7.2 thou/uL (1.40-6.50); %Basophils 0.4 % (0.0-1.0); %Eosinophils 0.7 % (0.0-10.0); %Lymphocytes 20.9 % (21.0-51.0); %Monocytes 10.9 % (0.0-10.0); %Neutrophils 67.1 % (42.0-75.0); Hemoglobin 11.5 g/dL (12.0-16.0); Mean Corpuscular HGB CONC 31.1 g/dL (32.0-36.0); Mean Corpuscular Hemoglobin 28.2 pg (27.0-31.0); Mean Corpuscular Volume 90.6 fL (78.0-98.0); Mean Platelet Volume 9.1 fL (7.4-10.4); Platelet Count 320 thou/uL (130-400); RBC Distribution Width 17.6 % (11.5-14.5); Red Blood Cell (RBC) Count 4.07 mill/uL (4.20-5.40); White Blood Cell (WBC) Count 10.7 thou/uL (4.8-10.8)
[2021-11-13 07:05] LABS: ALT (SGPT) 40 U/L (8-55); AST (SGOT) 516 U/L (5-34); Albumin 4.2 g/dL (3.4-4.8); Alkaline Phosphatase 447 U/L (40-110); Anion Gap 24 mmol/L (10-20); BUN (Urea Nitrogen) 37 mg/dL (9.8-20.1); Calc. Creatinine Clearance 11 mL/min (70-130); Calcium 9.9 mg/dL (7.8-10.44); Carbon Dioxide 18 mmol/L (23-31); Chloride 104 mmol/L (98-107); Estimated GFR 8; Globulin 2.4 g/dL (2.4-3.5); Glucose 108 mg/dL (83-110); Magnesium 2.5 mg/dL (1.6-2.6); Protein, Total 6.6 g/dL (5.8-8.1); Sodium 142 mmol/L (136-145)
[2021-11-13] MEDS: Sodium Bicarbonate Tab 325 MG TAB PO SCH ×3 (08:30→21:31)
[2021-11-13] MEDS: Enoxaparin Sodium 30 MG/0.3 ML SYRINGE SC SCH (08:30)
[2021-11-13] MEDS: Multivitamin W/ Minerals 1 TAB PO SCH (08:30)
[2021-11-13] MEDS: Midodrine HCl 5 MG TAB PO SCH ×3 (08:30→21:48)
[2021-11-13] MEDS: NIFEdipine XL 60 MG TAB PO SCH (08:30)
[2021-11-13] MEDS: Octreotide Acetate 100 MCG/ML VIAL SLOW IVP SCH ×2 (14:28→21:32)
[2021-11-13] MEDS ORDERED: Sodium Bicarbonate 150 MEQ in Dextrose 5% in Water 1,000 ML IV SCH (18:00)
[2021-11-13] MEDS: Rosuvastatin 20 MG TAB PO SCH (21:31)
[2021-11-13] MEDS: Mirtazapine 15 MG Soltab PO SCH (21:31)
[2021-11-14] MEDS: Octreotide Acetate 500 MCG/ML VIAL SC SCH ×3 (06:05→21:24)
[2021-11-14 07:20] LABS: Hemoglobin 11.3 g/dL (12.0-16.0); Mean Corpuscular HGB CONC 29.5 g/dL (32.0-36.0); Mean Corpuscular Hemoglobin 26.9 pg (27.0-31.0); Mean Corpuscular Volume 90.9 fL (78.0-98.0); Mean Platelet Volume 9.1 fL (7.4-10.4); Platelet Count 283 thou/uL (130-400); RBC Distribution Width 17.7 % (11.5-14.5); Red Blood Cell (RBC) Count 4.21 mill/uL (4.20-5.40); White Blood Cell (WBC) Count 11.9 thou/uL (4.8-10.8)
[2021-11-14 07:21] LABS: #Eosinphils 0.1 thou/uL (0.0-0.7); #Lymphocytes 2.3 thou/uL (1.20-3.40); #Monocytes 1.1 thou/uL (0.11-0.59); #Neutrophils 8.4 thou/uL (1.40-6.50); %Basophils 0.4 % (0.0-1.0); %Eosinophils 0.5 % (0.0-10.0); %Lymphocytes 19.4 % (21.0-51.0); %Monocytes 9.5 % (0.0-10.0); %Neutrophils 70.3 % (42.0-75.0)
[2021-11-14 07:44] LABS: INR-International Normal Ratio 1.5; Prothrombin Time 18.1 sec (12.0-14.7)
[2021-11-14 08:50] LABS: Hypochromia SLIGHT = 6-15 cells (100X) (0-5/hpf); MDiff Complete? YES; Platelet Morphology Comment Appears Adequate; Polychromasia SLIGHT = 2-3 cells (100X) (0-2/hpf); Target Cells SLIGHT = 2-5 cells (100X) (0-1/hpf)
[2021-11-14 08:56] LABS: ALT (SGPT) 44 U/L (8-55); AST (SGOT) 580 U/L (5-34); Albumin 3.6 g/dL (3.4-4.8); Alkaline Phosphatase 483 U/L (40-110); Anion Gap 25 mmol/L (10-20); BUN (Urea Nitrogen) 43 mg/dL (9.8-20.1); Bilirubin, Total 3.9 mg/dL (0.2-1.2); Calc. Creatinine Clearance 8 mL/min (70-130); Calcium 9.3 mg/dL (7.8-10.44); Carbon Dioxide 18 mmol/L (23-31); Chloride 104 mmol/L (98-107); Estimated GFR 6; Globulin 2.9 g/dL (2.4-3.5); Glucose 164 mg/dL (83-110); Magnesium 2.5 mg/dL (1.6-2.6); Protein, Total 6.5 g/dL (5.8-8.1); Sodium 142 mmol/L (136-145)
[2021-11-14] MEDS: Midodrine HCl 5 MG TAB PO SCH ×3 (09:48→21:19)
[2021-11-14] MEDS: Sodium Bicarbonate Tab 325 MG TAB PO SCH ×3 (09:48→21:19)
[2021-11-14] MEDS: Heparin 5,000 UNITS/ML VIAL SC SCH ×2 (09:48→21:20)
[2021-11-14] MEDS: Multivitamin W/ Minerals 1 TAB PO SCH (09:48)
[2021-11-14] MEDS: Dronabinol 2.5 MG CAP PO SCH (15:56)
[2021-11-14] MEDS: Rosuvastatin 20 MG TAB PO SCH (21:19)
[2021-11-14] MEDS: Mirtazapine 15 MG Soltab PO SCH (21:19)
[2021-11-15 06:08] LABS: #Basophils 0.1 thou/uL (0.0-0.2); #Eosinphils 0.1 thou/uL (0.0-0.7); #Lymphocytes 2.7 thou/uL (1.20-3.40); #Monocytes 1.1 thou/uL (0.11-0.59); #Neutrophils 7.3 thou/uL (1.40-6.50); %Basophils 0.7 % (0.0-1.0); %Eosinophils 0.8 % (0.0-10.0); %Lymphocytes 23.6 % (21.0-51.0); Mean Corpuscular HGB CONC 30.2 g/dL (32.0-36.0); Mean Corpuscular Hemoglobin 27.1 pg (27.0-31.0); Mean Corpuscular Volume 89.7 fL (78.0-98.0); Mean Platelet Volume 9.4 fL (7.4-10.4); Platelet Count 262 thou/uL (130-400); RBC Distribution Width 17.5 % (11.5-14.5); Red Blood Cell (RBC) Count 4.43 mill/uL (4.20-5.40); White Blood Cell (WBC) Count 11.3 thou/uL (4.8-10.8)
[2021-11-15] MEDS: Octreotide Acetate 500 MCG/ML VIAL SC SCH ×3 (06:18→20:35)
[2021-11-15 06:30] LABS: ALT (SGPT) 48 U/L (8-55); AST (SGOT) 681 U/L (5-34); Albumin 3.5 g/dL (3.4-4.8); Alkaline Phosphatase 596 U/L (40-110); Anion Gap 23 mmol/L (10-20); BUN (Urea Nitrogen) 52 mg/dL (9.8-20.1); Bilirubin, Total 4.1 mg/dL (0.2-1.2); Calc. Creatinine Clearance 7 mL/min (70-130); Calcium 9.1 mg/dL (7.8-10.44); Carbon Dioxide 21 mmol/L (23-31); Chloride 103 mmol/L (98-107); Estimated GFR 5; Globulin 2.7 g/dL (2.4-3.5); Glucose 107 mg/dL (83-110); Magnesium 2.6 mg/dL (1.6-2.6); Potassium 4.5 mmol/L (3.5-5.1); Protein, Total 6.2 g/dL (5.8-8.1); Sodium 142 mmol/L (136-145)
[2021-11-15] MEDS: Dronabinol 2.5 MG CAP PO SCH ×2 (08:43→17:27)
[2021-11-15] MEDS: Sodium Bicarbonate Tab 325 MG TAB PO SCH ×3 (08:43→20:33)
[2021-11-15] MEDS: Heparin 5,000 UNITS/ML VIAL SC SCH ×2 (08:44→20:35)
[2021-11-15] MEDS: Multivitamin W/ Minerals 1 TAB PO SCH (08:44)
[2021-11-15] MEDS: Midodrine HCl 5 MG TAB PO SCH ×3 (08:44→20:33)
[2021-11-15] MEDS: Mirtazapine 15 MG Soltab PO SCH (20:34)
[2021-11-15] MEDS: Rosuvastatin 20 MG TAB PO SCH (20:34)
[2021-11-16] MEDS ORDERED: CEFAZOLIN 2 GM in Sodium Chloride 0.9% 100 ML IVPB SCH (05:00)
[2021-11-16] MEDS: Octreotide Acetate 500 MCG/ML VIAL SC SCH ×3 (05:38→20:52)
[2021-11-16] MEDS: Midodrine HCl 5 MG TAB PO SCH ×3 (08:09→20:51)
[2021-11-16] MEDS: Heparin 5,000 UNITS/ML VIAL SC SCH ×2 (08:09→20:52)
[2021-11-16] MEDS: Sodium Bicarbonate Tab 325 MG TAB PO SCH ×3 (08:09→20:51)
[2021-11-16] MEDS: NIFEdipine XL 60 MG TAB PO SCH (08:09)
[2021-11-16] MEDS: Dronabinol 2.5 MG CAP PO SCH ×2 (08:09→16:02)
[2021-11-16] MEDS: Multivitamin W/ Minerals 1 TAB PO SCH (08:09)
[2021-11-16] MEDS ORDERED: Lidocaine 2% PF 5 ML VIAL ONE ×3 (09:25→14:13)
[2021-11-16] MEDS ORDERED: PROPOFOL 200 MG/20 ML VIAL ONE (09:25)
[2021-11-16] MEDS ORDERED: Bupivacaine/Epinephrine 0.25% 30 ML VIAL ONE (13:34)
[2021-11-16] MEDS ORDERED: Heparin 10,000 UNITS/ 10 ML VIAL ONE (13:34)
[2021-11-16] MEDS ORDERED: CEFAZOLIN 2 GM VIAL ONE (13:57)
[2021-11-16] MEDS ORDERED: Sodium Chloride 0.9% 100 ML ONE (13:57)
[2021-11-16] MEDS ORDERED: fentaNYL Citrate/PF 100 MCG/2 ML SYRINGE ONE (14:07)
[2021-11-16] MEDS ORDERED: Propofol 500 MG/50 ML VIAL ONE (14:07)
[2021-11-16] MEDS ORDERED: Ondansetron PF 4 MG/2 ML Vial ONE (15:25)
[2021-11-16] MEDS ORDERED: Ondansetron HCl/PF 4 MG/2 ML Vial IVP PRN (15:29)
[2021-11-16] MEDS ORDERED: Promethazine HCl 25 MG/ML VIAL IVPB PRN (15:29)
[2021-11-16] MEDS: Rosuvastatin 20 MG TAB PO SCH (20:51)
[2021-11-16] MEDS: Mirtazapine 15 MG Soltab PO SCH (20:53)
[2021-11-16] MEDS: Acetaminophen 325 MG TAB PO PRN (20:54)
[2021-11-16 23:45] LABS: HBSAB Concentration Less than 8.00 mIU/mL; Hep B Core Total Ab Non-Reactive (NonReactive); Hep B Core Total Index 0.03 S/CO (0-0.79); Hep B Surf AB Non-Reactive (NonReactive); Hep B Surf Ag Non-Reactive S/CO (NonReactive); Hep C IgG Ab Non-Reactive (NonReactive); Hep C Index 0.05 S/CO (0-0.79)
[2021-11-17] MEDS ORDERED: Promethazine HCl 12.5 MG in Sodium Chloride 0.9% 50 ML IVPB PRN (00:10)
[2021-11-17] MEDS: Acetaminophen 325 MG TAB PO PRN (03:31)
[2021-11-17] MEDS: Dextrose 50% Abboject 50 ML SYRINGE SLOW IVP PRN ×2 (04:50→08:45)
[2021-11-17] MEDS: Octreotide Acetate 500 MCG/ML VIAL SC SCH (05:17)
[2021-11-17 07:54] VITALS: TEMP 97.4
[2021-11-17] MEDS: Midodrine HCl 5 MG TAB PO SCH ×2 (08:01→08:09)
[2021-11-17] MEDS: Multivitamin W/ Minerals 1 TAB PO SCH (08:01)
[2021-11-17] MEDS: Sodium Bicarbonate Tab 325 MG TAB PO SCH ×2 (08:01→08:09)
[2021-11-17] MEDS: Heparin 5,000 UNITS/ML VIAL SC SCH (08:01)
[2021-11-17] MEDS: NIFEdipine XL 60 MG TAB PO SCH (08:02)
[2021-11-17] MEDS: Dronabinol 2.5 MG CAP PO SCH (08:08)
[2021-11-17] MEDS ORDERED: Dextrose 5 % And 0.9 % NaCl 1,000 ML IV SCH (09:15)
[2021-11-17 09:26] LABS: Hemoglobin 8.2 g/dL (12.0-16.0); Mean Corpuscular HGB CONC 29.8 g/dL (32.0-36.0); Mean Corpuscular Hemoglobin 27.6 pg (27.0-31.0); Mean Corpuscular Volume 92.6 fL (78.0-98.0); Mean Platelet Volume 9.8 fL (7.4-10.4); Platelet Count 153 thou/uL (130-400); RBC Distribution Width 18.5 % (11.5-14.5); Red Blood Cell (RBC) Count 2.97 mill/uL (4.20-5.40); White Blood Cell (WBC) Count 9.2 thou/uL (4.8-10.8)
[2021-11-17 10:03] LABS: Band 14 % (5-11); Lymphocytes 16 % (21-51); MDiff Complete? YES; Monocytes 5 % (0-10); Neutrophil 65 % (42-75); Platelet Morphology Comment Appears Adequate; Polychromasia MODERATE = 3-4 cells (100X) (0-2/hpf); Schistocytes SLIGHT = 2-5 cells (100X) (0-1/hpf)
[2021-11-17] MEDS ORDERED: EPINEPHrine 1 MG/10 ML Abboject SYRINGE ONE (12:46)
[2021-11-17] MEDS ORDERED: Dextrose 50% Abboject 50 ML SYRINGE ONE (12:46)
[2021-11-17] MEDS ORDERED: Sodium Bicarb 50 MEQ/50 ML Abboject 8.4% SYRINGE ONE (12:46)
[2021-11-17] MEDS ORDERED: Amiodarone 150 MG/3 ML VIAL ONE (12:46)
[2021-11-17] MEDS ORDERED: Calcium Chloride 1 GM/10 ML Abboject SYRINGE ONE (12:46)
[2021-11-17] MEDS ORDERED: Sodium Bicarb 50 MEQ/50 ML VIAL ONE (13:24)
[2021-11-17] MEDS ORDERED: Insulin Regular 300 UNITS/3 ML VIAL ONE (13:24)
[2021-11-17] MEDS ORDERED: NOREPINEPHRINE 8 MG/250 ML-D5W 250 ML IVPB SCH (13:30)
[2021-11-17] MEDS ORDERED: Ventilator Sedation Protocol 1 EACH FS SCH (13:30)
[2021-11-17 13:34] LABS: CO2 Tension 56.6 mmHg (35.0-45.0); Calcium, Ionized (arterial) 1.16 mmol/L (1.12-1.30); Carboxyhemoglobin (COHb) 0.8 gm% (0.0-3.0); Hemoglobin (Hb) 6.3 g/dL (12.0-16.0); O2 Tension (PaO2), arterial 346.6 mmHg (> 70.0); pH, Arterial 7.36 (7.35-7.45)
[2021-11-17 13:35] LABS: Puncture Site RFA
[2021-11-17 13:43] VITALS: BP 98/56
[2021-11-17 13:47] LABS: Hemoglobin 7.2 g/dL (12.0-16.0); Mean Corpuscular HGB CONC 26.1 g/dL (32.0-36.0); Mean Corpuscular Hemoglobin 27.9 pg (27.0-31.0); Mean Platelet Volume 9.8 fL (7.4-10.4); Platelet Count 155 thou/uL (130-400); RBC Distribution Width 19.7 % (11.5-14.5)
[2021-11-17] MEDS ORDERED: Midazolam HCl 2 mg/2 ml Vial SLOW IVP PRN (13:49)
[2021-11-17] MEDS ORDERED: Fentanyl BOLUS 250 ML IVPB PRN (14:00)
[2021-11-17] MEDS ORDERED: Propofol 1,000 MG/100 ML VIAL IV PRN (14:00)
[2021-11-17] MEDS ORDERED: Morphine 4 MG/ML VIAL SLOW IVP PRN (14:00)
[2021-11-17] MEDS ORDERED: Propofol BOLUS 1,000 MG/100 ML VIAL IV PRN (14:00)
[2021-11-17] MEDS ORDERED: Fentanyl CADD 100 ML IV SCH (14:00)
[2021-11-17] MEDS ORDERED: Albuterol Sulfate 1.25 MG/3 ML NEB NEB SCH (14:00)
[2021-11-17] MEDS ORDERED: EPINEPHrine 4 MG in Dextrose 5% in Water 250 ML IV SCH (14:00)
[2021-11-17] MEDS ORDERED: DISCONTINUE PREVIOUS NARCOTIC PAIN MEDICATIONS AND BENZODIAZEPINES FS SCH (14:00)
[2021-11-17 14:05] LABS: ALT (SGPT) 412 U/L (8-55); AST (SGOT) 3231 U/L (5-34); Albumin 2.3 g/dL (3.4-4.8); Alkaline Phosphatase 519 U/L (40-110); Anion Gap 40 mmol/L (10-20); BUN (Urea Nitrogen) 49 mg/dL (9.8-20.1); Bilirubin, Total 3.7 mg/dL (0.2-1.2); Calc. Creatinine Clearance 6 mL/min (70-130); Carbon Dioxide 20 mmol/L (23-31); Chloride 96 mmol/L (98-107); Estimated GFR 4; Globulin 1.8 g/dL (2.4-3.5); Glucose 2188 mg/dL (83-110); Potassium 8.5 mmol/L (3.5-5.1); Protein, Total 4.1 g/dL (5.8-8.1); Sodium 147 mmol/L (136-145); Troponin I 0.657 ng/mL (< 0.028)
[2021-11-17 14:06] LABS: Calcium Greater than 17.0 mg/dL (7.8-10.44)
[2021-11-17 14:15] LABS: Anisocytosis SLIGHT = 6-15 cells (100X) (0-5/hpf); Band 11 % (5-11); Lymphocytes 31 % (21-51); MDiff Complete? YES; Macrocytosis SLIGHT = 6-15 cells (100X) (0-5/hpf); Metamyelocyte 2 % (0-0); Monocytes 5 % (0-10); Neutrophil 51 % (42-75); Nucleated RBC 1 % (0); Ovalocytes SLIGHT = 2-5 cells (100X) (0-1/hpf); Platelet Morphology Comment Appears Adequate; Polychromasia MODERATE = 3-4 cells (100X) (0-2/hpf); White Blood Cell (WBC) Count 11.2 thou/uL (4.8-10.8)
[2021-11-17] MEDS ORDERED: Lorazepam (BATCHED) 2 MG/ML SYR SLOW IVP PRN (14:17)
[2021-11-17] MEDS ORDERED: Morphine 2 MG/ML VIAL SLOW IVP PRN (14:48)
[2021-11-17] MEDS ORDERED: Morphine 2 MG/ML VIAL SLOW IVP SCH (16:15)
[2021-11-18] MEDS ORDERED: Pantoprazole 40 MG VIAL IVP SCH (09:00)
== END 2021-11-17 16:42 | disposition expired | DRG 423 ==
LOC: INTOOBSV 17:07 → 2NO 17:07 → OBSVTOIN 11-03 14:28 → T4-A 11-07 21:10 → CCU 11-17 13:47
PROVIDERS: ADMIT Hospitalist; ATTEND Internal Medicine
PROC: 0FB23ZX Excision of Left Lobe Liver, Percutaneous Approach, Diagnostic (ICD-10-PCS; principal; 2021-11-03)
PROC: 0JH60WZ Insertion of Totally Implantable Vascular Access Device into Chest Subcutaneous Tissue and Fascia, Open Approach (ICD-10-PCS; 2021-11-16)
PROC: 0JH63XZ Insertion of Tunneled Vascular Access Device into Chest Subcutaneous Tissue and Fascia, Percutaneous Approach (ICD-10-PCS; 2021-11-16)
PROC: 02HV33Z Insertion of Infusion Device into Superior Vena Cava, Percutaneous Approach (ICD-10-PCS; 2021-11-16)
PROC: B5181ZA Fluoroscopy of Superior Vena Cava using Low Osmolar Contrast, Guidance (ICD-10-PCS; 2021-11-16)
PROC: B548ZZA Ultrasonography of Superior Vena Cava, Guidance (ICD-10-PCS; 2021-11-16)
PROC: 5A1D70Z Performance of Urinary Filtration, Intermittent, Less than 6 Hours Per Day (ICD-10-PCS; 2021-11-16)
PROC: 5A1935Z Respiratory Ventilation, Less than 24 Consecutive Hours (ICD-10-PCS; 2021-11-17)
PROC: 0BH18EZ Insertion of Endotracheal Airway into Trachea, Via Natural or Artificial Opening Endoscopic (ICD-10-PCS; 2021-11-17)
DX: C78.7 Secondary malignant neoplasm of liver and intrahepatic bile duct (principal); K76.7 Hepatorenal syndrome; N17.0 Acute kidney failure with tubular necrosis; E43 Unspecified severe protein-calorie malnutrition; N39.0 Urinary tract infection, site not specified; E87.2 Acidosis; R18.0 Malignant ascites; I50.32 Chronic diastolic (congestive) heart failure; E78.5 Hyperlipidemia, unspecified; I25.10 Atherosclerotic heart disease of native coronary artery without angina pectoris; E87.6 Hypokalemia; Z96.651 Presence of right artificial knee joint; E11.649 Type 2 diabetes mellitus with hypoglycemia without coma; C50.919 Malignant neoplasm of unspecified site of unspecified female breast; E88.09 Other disorders of plasma-protein metabolism, not elsewhere classified; I11.0 Hypertensive heart disease with heart failure; I46.9 Cardiac arrest, cause unspecified; Z66 Do not resuscitate; Z20.822 Contact with and (suspected) exposure to COVID-19; Z85.3 Personal history of malignant neoplasm of breast; Z79.899 Other long term (current) drug therapy; Z98.890 Other specified postprocedural states; Z98.51 Tubal ligation status; Z68.22 Body mass index [BMI] 22.0-22.9, adult; Z51.5 Encounter for palliative care
CPT/HCPCS: 36415; 36416; 36600; 47000; 71045; 76705; 76770; 77012; 80048; 80053; 80061; 80069; 80074; 81001; 82550; 82570; 82805; 83036; 83735; 83880; 84156; 84300; 84443; 84484; 84540; 85025; 85610; 85730; 86704; 87086; 87340; 88307; 88333; 88341; 88342; 88361; 90935; 93005; 93010; 93306; 93970; 93976; 94002; 94640; 96374; 96375; 96376; C1752; C1788; G0257; G0378; J0360; J0690; J0696; J1642; J1644; J1650; J1815; J2001; J2250; J2270; J2354; J2405; J2550; J2704; J3490; J7042; J7050; J7070; J7120; J7999; P9047; Q0167; U0003; U0005